=== PATIENT | male | born 1990 | race Caucasian/White ===

== ENCOUNTER 2020-03-19 11:44 | Emergency (ER) | payer SELFPAY ==
[2020-03-19 11:45] VITALS: BP 137/100; PULSE 68; RESP 16; TEMP 36.6; O2SAT 100; BMI 33.9
--- NOTE | 2020-03-19 11:56 | XR_ITS ---
WS: [id number] LEFT SHOULDER: 3 VIEW(S) TECHNIQUE: Internal and external rotation with Y view. HISTORY: injury COMPARISON: 05/25/2019 No fracture or dislocation or soft tissue abnormality. Glenohumeral and AC joints are unremarkable. XR/XR shoulder LT min 2V* [id number] IMPRESSION: Normal LEFT shoulder.
--- NOTE | 2020-03-19 11:56 | W.ED.FALL ---
HPI - Fall General: Chief Complaint: Fall Stated Complaint: SHOULDER PAIN, FALL Time Seen by Provider: 03/19/20 11:46 Source: patient Mode of arrival: other (police custody) Limitations: no limitations History of Present Illness: HPI Narrative: Patient is a 29-year-old male who presents to ED today in police custody for complaints of a left shoulder injury. Patient states he was trying to climb onto the top bunk of his bed when he struck his left collarbone on the corner. occupational health nurse manager states that patient fell off of his bunk however he tells me this is an accurate. No other injury sustained or no other complaints at this time. MD complaint: other (L shoulder injury ) Onset (ago): hour(s) (last night) Place fall occurred: other (residential) Loss of consciousness: None Associated symptoms-after fall: Denies neck pain Review of Systems Musc: Reports: joint pain (L shoulder); Denies: neck pain, back pain, extremity pain, extremity swelling, joint redness or joint warmth Neuro: Denies: numbness in extremities or sensory changes PFS ED PFSH: Social History Smoking and tobacco status: former smoker Physical Exam Const: COMMON NORMALS: no acute distress, average body habitus, patient oriented x3, no limitations, healthy appearing, alert and well nourished ORIENTATION/CONSCIOUSNESS: Yes oriented to person, Yes oriented to place and Yes oriented to time Extremity: OTHER: pt with mild redness/abrasion overlying mid to distal L clavicle; no obvious deformity to shoulder; ROM testing was very limited as patient was in handcuffs and police custody were not allowed to release these based on patient's history of violence; NV intact Neuro: COMMON NORMALS: patient oriented x3 and no sensory deficits noted SENSORIUM/ORIENTATION: Yes alert, Yes oriented to person, Yes oriented to place and Yes oriented to time Course Vital Signs: Vital signs: Vital Signs Temperature 97.9 F 03/19/20 11:45 Pulse Rate 68 03/19/20 11:45 Respiratory Rate 16 03/19/20 11:45 Blood Pressure 137/100 03/19/20 11:45 Pulse Oximetry 100 03/19/20 11:45 MDM - Fall Imaging Data^: L shoulder XR: Radiologist's impression: [address] [address] XRay Report Signed Patient: Maged Medina Unit #: [id number] : 1990 Age/Sex: 29 / M ADM Date: 03/19/20 Loc: ER Room/Bed: Attending Dr: Ordering Provider/Ordering MD: Yamile Vuaghn Date of Service: 03/19/20 Procedure(s): XR shoulder LT min 2V* [id number] Accession Number(s): [id number] Report Number: [id number] WS: [id number] LEFT SHOULDER: 3 VIEW(S) TECHNIQUE: Internal and external rotation with Y view. HISTORY: injury COMPARISON: 05/25/2019 No fracture or dislocation or soft tissue abnormality. Glenohumeral and AC joints are unremarkable. XR/XR shoulder LT min 2V* [id number] IMPRESSION: Normal LEFT shoulder. Dictated By: Yelitza Taylor DO Signed By: Yelitza Taylor DO Signed Date/Time: 03/19/20 1227 DD/ 1226 Discharge Plan Discharge Patient Disposition: Home, Self-Care Clinical Impression: Injury of left shoulder Qualifiers: Encounter type: initial encounter Qualified Code(s): S49.92XA - Unspecified injury of left shoulder and upper arm, initial encounter Condition: Stable Discharge Orders: Discharge Order (Routine); Ordered 03/19/20 Ordered By: Yamile Vaughn Discharge Date/Time: 03/19/20 13:09 Coding Level of Care Code ED [facility] for Volodym[facility]
[2020-03-19 13:06] VITALS: BP 134/96; PULSE 68; RESP 18; O2SAT 100
== END 2020-03-19 13:09 | disposition home or self-care (01) ==
PROVIDERS: Emergency Provider Physician Assistant
DX: S49.92XA Unspecified injury of left shoulder and upper arm, initial encounter (principal); W22.09XA Striking against other stationary object, initial encounter; Z87.891 Personal history of nicotine dependence
CPT/HCPCS: 12345; 73030; 99281; 99282